=== PATIENT | female | born 1995 | race Caucasian/White ===

== ENCOUNTER 2021-01-04 11:14 | Inpatient (IN) | payer OTHER ==
[~2021-01-04] VITALS: Ht 165.1 cm; Wt 67.9 kg
[2021-01-04 12:27] LABS: HEMATOCRIT 40.9 % (36.0-47.0); HEMOGLOBIN 13.6 g/dl (12.0-15.5); MEAN CORPUSCULAR HGB CONC 33.3 g/dl (32.0-36.5); MEAN CORPUSCULAR VOLUME 90.3 fl (80.0-96.0); PLATELET COUNT, AUTOMATED 187 10^3/uL (150-450); RED BLOOD COUNT 4.53 10^6/uL (4.00-5.40); WHITE BLOOD COUNT 6.8 10^3/uL (4.0-10.0)
[2021-01-04 13:10] LABS: ACETAMINOPHEN LEVEL < 2.0 UG/ML (10.0-30.0); ALBUMIN 3.9 GM/DL (3.2-5.2); ALT/SGPT 29 U/L (12-78); BILIRUBIN,DIRECT < 0.1 MG/DL (0.0-0.2); BILIRUBIN,TOTAL 0.2 MG/DL (0.2-1.0); BLOOD UREA NITROGEN 11 MG/DL (7-18); CALCIUM LEVEL 9.2 MG/DL (8.5-10.1); CARBON DIOXIDE LEVEL 28 MEQ/L (21-32); CHLORIDE LEVEL 109 MEQ/L (98-107); CREATININE FOR GFR 0.78 MG/DL (0.55-1.30); ETHYL ALCOHOL (ETHANOL) < 0.003 % (0.000-0.010); GLOMERULAR FILTRATION RATE > 60.0 (>60); GLUCOSE, FASTING 98 MG/DL (70-100); POTASSIUM SERUM 4.4 MEQ/L (3.5-5.1); SALICYLATE LEVEL 4.5 MG/DL (5.0-30.0); SODIUM LEVEL 140 MEQ/L (136-145)
[2021-01-04 13:13] LABS: HCG, SERUM QUALITATIVE NEGATIVE (NEGATIVE)
[2021-01-04 13:57] LABS: AMPHETAMINES LEVEL URINE NEGATIVE (NEGATIVE); BARBITURATES URINE NEGATIVE (NEGATIVE); BENZODIAZEPINES URINE NEGATIVE (NEGATIVE); CANNABINOIDS URINE POSITIVE (NEGATIVE); COCAINE METABOLITE URINE NEGATIVE (NEGATIVE); METHADONE URINE NEGATIVE (NEGATIVE); OPIATES URINE NEGATIVE (NEGATIVE); PHENCYCLIDINE URINE NEGATIVE (NEGATIVE)
[2021-01-04] MEDS ORDERED: NICOTINE 14 MG/24 HR TRANSDERMAL TD ONE (16:00)
[2021-01-04] MEDS ORDERED: [UNRECOGNIZED DRUG - CODE] TOP (19:22)
[2021-01-04] MEDS ORDERED: HOME MED LIST COMPLETE! XX SCH (19:25)
--- NOTE | 2021-01-04 22:14 | ECGEPIP ---
[facility] - ED Test Date: 2021-01-04 Pat Name: ROXI LAGUNA Department: Room: - Gender: Female Secondary Art Teacher: ARELIS : 1995 Requested By: ALEXANDRE Rowan Order Number: [id number] Reading MD: Alexandre Tao Measurements Intervals [place] Rate: 51 P: 46 GA: 128 QRS: 37 QRSD: 86 T: 33 QT: 418 QTc: 385 Interpretive Statements Sinus bradycardia with premature atrial complexes Comparison tracing not on file Electronically Signed on 01-04-2021 22:14:34 EDT by Alexandre Tao
[2021-01-05] MEDS ORDERED: diphenhydrAMINE 50MG CAP PO ONE (00:15)
[2021-01-05 09:49] LABS: RSV AMPLIFICATION NEGATIVE (NEGATIVE)
[2021-01-05] MEDS ORDERED: MOM 30ML SUSPENSION UDC PO PRN (13:00)
[2021-01-05] MEDS ORDERED: NICOTINE 14 MG/24 HR TRANSDERMAL TD ONE (13:00)
[2021-01-05] MEDS ORDERED: ACETAMINOPHEN TAB 650MG DOSE (2X325MG) PO PRN (13:00)
[2021-01-05] MEDS ORDERED: traZODone 50 MG TAB PO PRN (13:00)
[2021-01-05] MEDS ORDERED: MAALOX 30 ML SUSP *UDC PO PRN (13:00)
[2021-01-05 15:40] VITALS: BP 126/78
[2021-01-06 07:38] VITALS: BP 124/54
[2021-01-06] MEDS ORDERED: INFLUENZA QUADRIVALENT PF VACCINE 0.5ML SYRINGE IM ONE (09:00)
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
[2021-01-06 11:00] VITALS: BP 152/88
[2021-01-06 13:25] LABS: GC DNA AMPLIFICATION POSITIVE (NEGATIVE)
[2021-01-06 16:36] LABS: HIV 1&2 SCREEN CENTAUR NEGATIVE (NEGATIVE)
[2021-01-06] MEDS ORDERED: LIDOCAINE 1% SDV 5ML VIAL DILUENT ONE (17:00)
[2021-01-06] MEDS ORDERED: cefTRIAXone 500MG VIAL (J0696 PER 250MG) IM ONE (17:00)
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
[2021-01-06] MEDS ORDERED: BICILLIN L-A 2,400,000 UNIT/4 ML SYRINGE (PENICILLIN G BENZATINE) IM ONE (20:00)
[2021-01-06] MEDS ORDERED: DOXYCYCLINE HYCLATE 100MG TABLET PO SCH (21:00)
[2021-01-06] MEDS: ARIPiprazole 10 MG TAB PO SCH (21:19)
[2021-01-07 10:41] LABS: CHOLESTEROL RISK RATIO 3.171 (<5)
[2021-01-07 16:45] VITALS: BP 126/72
[2021-01-07] MEDS: ARIPiprazole 10 MG TAB PO SCH (21:21)
[2021-01-08 06:28] VITALS: BP 121/78
--- NOTE | 2021-01-08 14:36 | MHIPN ---
[facility] PROGRESS NOTE DATE: 01/08/2021 VITAL SIGNS: Blood pressure 121/78, pulse 103, temperature 96.8. This is a video assessment. She is in the inpatient unit, accompanied by staff. I am at home. CHIEF COMPLAINT: Says feels okay. SUBJECTIVE: Seen for followup. Indicates feels okay and that she does not feel much different from when she came in. On further inquiry, says has been feeling good and has been energetic. Sleep is okay. Suggests has not needed much sleep. MENTAL STATUS EXAMINATION: Neat, cooperative. No agitation. No psychomotor retardation. She is coherent. Speech is normal in amount and rate. Affect somewhat expansive and tends to laugh not in context with what is being discussed. Denies any suicidal thoughts or intents. I could not detect any delusions at this point. Cognition is grossly intact. Judgment is poor. Insight fair at best. ASSESSMENT: 1. Bipolar disorder, consider type 1 with possible mixed features. 2. Cannabis use disorder. 3. Tobacco use disorder. Moods remain elevated to some extent, and this clouds her judgment. PLAN: Continue current care, including the Abilify 10 mg at night. We will continue current observations as well. Encourage participate in activities in the unit. Further recommendations will be made depending on the clinical picture.
[2021-01-08 16:13] VITALS: BP 118/76
[2021-01-08] MEDS: ARIPiprazole 10 MG TAB PO SCH (21:38)
[2021-01-09 06:23] VITALS: BP 138/69
[2021-01-09 16:22] VITALS: BP 130/75
[2021-01-09] MEDS: ARIPiprazole 10 MG TAB PO SCH (21:08)
[2021-01-10 06:25] VITALS: BP 137/96
[2021-01-10] MEDS ORDERED: ABIL10TA9 PO (10:24)
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
--- NOTE | 2021-01-10 17:00 | MHIPN ---
[facility] PROGRESS NOTE DATE: 01/09/2021 VITAL SIGNS: Blood pressure 130/75, pulse 83, temperature 97.9. This is a video assessment. She is seen in the presence of staff. She is in the inpatient psychiatry unit. I am at home. CHIEF COMPLAINT: Says feels okay. SUBJECTIVE: Seen for followup. Indicates has been feeling okay and that she feels her mood is a bit more settled. Says had a good night. Denies an elated mood at present. Also suggests is not craving cannabis. MENTAL STATUS EXAMINATION: Neat, cooperative. No agitation. No psychomotor retardation. Coherent. Affect reactive, not as expansive as yesterday. Denies any suicidal thoughts or intents. No overt delusions. Cognition grossly intact. Judgment remains compromised, as insight. ASSESSMENT: 1. Bipolar disorder, type 1, possibly mixed features. 2. Cannabis use disorder. PLAN: Continue current care, including the Abilify, and observation. Encourage participation in activities in the unit. She will be seen by the assigned clinician tomorrow.
== END 2021-01-10 14:29 | disposition home or self-care (01) | DRG 883 ==
LOC: M ED 11:14 → M ED INP 01-05 13:00 → M PSY 01-05 16:14
PROVIDERS: ADMIT Student in an Organized Health Care Education/Training Program; ATTEND Student in an Organized Health Care Education/Training Program
DX: F60.3 Borderline personality disorder (principal); A54.9 Gonococcal infection, unspecified; F17.200 Nicotine dependence, unspecified, uncomplicated; F12.90 Cannabis use, unspecified, uncomplicated; A53.9 Syphilis, unspecified; E66.01 Morbid (severe) obesity due to excess calories

== ENCOUNTER 2021-01-28 11:24 | Inpatient (IN) | payer OTHER ==
[~2021-01-28] VITALS: Ht 167.6 cm; Wt 70.1 kg
[~2021-01-28 11:24] MED LIST: ABIL10TA9 PO; [UNRECOGNIZED DRUG - CODE] TOP
[2021-01-28] MEDS ORDERED: MELA10CA6 PO (11:35)
[2021-01-28 12:05] LABS: HEMATOCRIT 41.3 % (36.0-47.0); HEMOGLOBIN 13.7 g/dl (12.0-15.5); MEAN CORPUSCULAR HEMOGLOBIN 29.9 pg (27.0-33.0); MEAN CORPUSCULAR HGB CONC 33.2 g/dl (32.0-36.5); MEAN CORPUSCULAR VOLUME 90.2 fl (80.0-96.0); PLATELET COUNT, AUTOMATED 215 10^3/uL (150-450); RED BLOOD COUNT 4.58 10^6/uL (4.00-5.40); WHITE BLOOD COUNT 5.7 10^3/uL (4.0-10.0)
[2021-01-28 12:44] LABS: AMPHETAMINES LEVEL URINE NEGATIVE (NEGATIVE); BARBITURATES URINE NEGATIVE (NEGATIVE); BENZODIAZEPINES URINE NEGATIVE (NEGATIVE); CANNABINOIDS URINE POSITIVE (NEGATIVE); COCAINE METABOLITE URINE NEGATIVE (NEGATIVE); METHADONE URINE NEGATIVE (NEGATIVE); OPIATES URINE NEGATIVE (NEGATIVE); PHENCYCLIDINE URINE NEGATIVE (NEGATIVE)
[2021-01-28 12:46] LABS: ACETAMINOPHEN LEVEL < 2.0 UG/ML (10.0-30.0); ALBUMIN 4.2 GM/DL (3.2-5.2); ALT/SGPT 32 U/L (12-78); BILIRUBIN,DIRECT 0.1 MG/DL (0.0-0.2); BILIRUBIN,TOTAL 0.3 MG/DL (0.2-1.0); BLOOD UREA NITROGEN 14 MG/DL (7-18); CALCIUM LEVEL 9.8 MG/DL (8.5-10.1); CARBON DIOXIDE LEVEL 29 MEQ/L (21-32); CHLORIDE LEVEL 110 MEQ/L (98-107); ETHYL ALCOHOL (ETHANOL) < 0.003 % (0.000-0.010); GLOMERULAR FILTRATION RATE > 60.0 (>60); GLUCOSE, FASTING 113 MG/DL (70-100); POTASSIUM SERUM 3.9 MEQ/L (3.5-5.1); SALICYLATE LEVEL 3.8 MG/DL (5.0-30.0); SODIUM LEVEL 143 MEQ/L (136-145); TOTAL PROTEIN 7.6 GM/DL (6.4-8.2)
[2021-01-28 14:01] LABS: HCG, SERUM QUALITATIVE NEGATIVE (NEGATIVE)
[2021-01-28 17:46] LABS: RSV AMPLIFICATION POSITIVE (NEGATIVE)
[2021-01-28] MEDS ORDERED: MOM 30ML SUSPENSION UDC PO PRN (18:40)
[2021-01-28] MEDS ORDERED: MAALOX 30 ML SUSP *UDC PO PRN (18:40)
[2021-01-28] MEDS ORDERED: ACETAMINOPHEN TAB 650MG DOSE (2X325MG) PO PRN (18:40)
[2021-01-28] MEDS ORDERED: ABIL10TA9 PO (18:44)
[2021-01-28] MEDS ORDERED: HOME MED LIST COMPLETE! XX SCH (18:45)
--- OUTSIDE RECORDS SUMMARY | 2021-01-28 18:54 | CCD ---
Author Author [facility] Organization [facility] Address Unknown Phone Unavailable Care Team Providers Care Autism Teacher Name Role Phone Feola, T Kailey PA Unavailable Unavailable Feola, T Kailey PA Unavailable Unavailable Feola, T Kailey PA Unavailable Unavailable Feola, T Kailey PA Unavailable Unavailable Feola, T Kailey PA Unavailable Unavailable Feola, T Kailey PA Unavailable Unavailable Feola, T Kailey PA Unavailable Unavailable Feola, T Kailey PA Unavailable Unavailable Feola, T Kailey PA Unavailable Unavailable Feola, T Kailey PA Unavailable Unavailable Feola, T Kailey PA Unavailable Unavailable Feola, T Kailey PA Unavailable Unavailable Feola, T Kailey PA Unavailable Unavailable Feola, T Kailey PA Unavailable Unavailable Feola, T Kailey PA Unavailable Unavailable Feola, T Kailey PA Unavailable Unavailable Feola, T Kailey PA Unavailable Unavailable Feola, T Kailey PA Unavailable Unavailable Feola, T Kailey PA Unavailable Unavailable Feola, T Kailey PA Unavailable Unavailable Feola, T Kailey PA Unavailable Unavailable Feola, T Kailey PA Unavailable Unavailable Feola, T Kailey PA Unavailable Unavailable Feola, T Kailey PA Unavailable Unavailable Feola, T Kailey PA Unavailable Unavailable Feola, T Kailey PA Unavailable Unavailable Feola, T Kailey PA Unavailable Unavailable Feola, T Kailey PA Unavailable Unavailable Feola, T Kailey PA Unavailable Unavailable Feola, T Kailey PA Unavailable Unavailable Feola, T Kailey PA Unavailable Unavailable Feola, T Kailey PA Unavailable Unavailable Feola, T Kailey PA Unavailable Unavailable Feola, T Kailey PA Unavailable Unavailable Feola, T Kailey PA Unavailable Unavailable Feola, T Kailey PA Unavailable Unavailable Feola, T Kailey PA Unavailable Unavailable Feola, T Kailey PA Unavailable Unavailable Feola, T Kailey PA Unavailable Unavailable Feola T Kailey MEJÍA Unavailable Unavailable FeJacqueline vega Kailey MEJÍA Unavailable Unavailable Re-disclosure Warning The records that you are about to access may contain information from federally-assisted alcohol or drug abuse programs. If such information is present, then the following federally mandated warning applies: This information has been disclosed to you from records protected by federal confidentiality rules (42 CFR part 2). The federal rules prohibit you from making any further disclosure of this information unless further disclosure is expressly permitted by the written consent of the person to whom it pertains or as otherwise permitted by 42 CFR part 2. A general authorization for the release of medical or other information is NOT sufficient for this purpose. The Federal rules restrict any use of the information to criminally investigate or prosecute any alcohol or drug abuse patient.The records that you are about to access may contain highly sensitive health information, the redisclosure of which is protected by Article 27-F of the [facility] Public Health law. If you continue you may have access to information: Regarding HIV / AIDS; Provided by facilities licensed or operated by the [facility] Office of Mental Health; or Provided by the [facility] Office for People With Developmental Disabilities. If such information is present, then the following [facility] mandated warning applies: This information has been disclosed to you from confidential records which are protected by state law. State law prohibits you from making any further disclosure of this information without the specific written consent of the person to whom it pertains, or as otherwise permitted by law. Any unauthorized further disclosure in violation of state law may result in a fine or fdc sentence or both. A general authorization for the release of medical or other information is NOT sufficient authorization for further disc losure. Encounters Encounter Providers Location Date Indications Data Source(s ) Outpatient Attender: Kailey MEJÍA 021 03:36:27 PM EDT - 10/03/2020 04:02:14 PM EDT [facility] ([facility] ) Medications No Information Insurance Providers Payer name Policy type / Coverage type Policy ID Covered green party ID Covered green party's relationship to lópez Policy López Plan Information NATHANIEL MANLEY/NATHANIEL [id number] Spouse 01 [id number] [facility] [id number] [facility] [id number] Problems, Conditions, and Diagnoses No Information Surgeries/Procedures No Information Results ID Date Data Source [id number] 01/05/2021 08:49:00 AM EDT [facility] Name Value Range Interpretation Code Description Data Isabel rce(s) Supporting Document(s) SARS coronavirus 2 RNA [Presence] in Res piratory specimen by KAITLYNN with probe detection NEGATIVE [facility] This lab was ordered by [facility] a nd reported by [facility]. Procedure Social History No Information
[2021-01-28 22:30] VITALS: BP 147/82
[2021-01-29 06:29] VITALS: BP 121/74
[2021-01-29] MEDS: NICOTINE 21MG/24HR 1 EA TRANSDERMAL TD PRN (08:13)
[2021-01-29] MEDS: ONDANSETRON 4 MG ORAL DISINTEGRATING TAB PO PRN (17:22)
--- NOTE | 2021-01-29 17:42 | HPEPDOC ---
[facility] Medical History & Physical Date of Admission Jan 28, 2021 Date of Service: Jan 29, 2021 History and Physical CHIEF COMPLAINT: Medical health screening HISTORY OF PRESENT ILLNESS: Mrs. Wayne is a 25 year old female who was seen in the inpatient mental health unit. Please seen mental health history and physical for more information about patient's psychiatric hospitalization. Hospitalist was consulted for medical health screening. Patient reports 2 weeks of coughing and diarrhea. Her family is sick with RSV, and she tested positive for RSV. Otherwise, she tells me that it is difficult for her to eat. She is a heavy marijuana consumer, so food is not as appetizing as it once was and sometimes it makes her nauseous. I have added on Zofran for nausea and famotidine for GERD like symptoms. Otherwise, she denies any fever, changes in vision, sore throat, dyspnea, chest pain, abdominal pain, or dysuria. PAST MEDICAL HISTORY: 1. Sebaceous cysts. 2. Gestational diabetes in . 3. History of severe mood lability. PAST SURGICAL HISTORY: 1. Cyst removal from leg and abdominal wall. SOCIAL HISTORY: Tobacco use: Former smoker. Tells me she quit about 2 to 3 weeks ago ETOH: Denies Illicit drug use: Marijuana FAMILY HISTORY: Biologic Father: Alcoholic, schizophrenia, overdose on crack cocaine Mother: Heart disease and mental health issues ALLERGIES: Please see below. REVIEW OF SYSTEMS: CONSTITUTIONAL: Denies any fever or chills. ENT: Denies sore throat. RESPIRATORY: Denies shortness of breath. Reports cough. CARDIOVASCULAR: Denies chest pain. GASTROINTESTINAL: Denies abdominal pain. Reports diarrhea. Denies constipation GENITOURINARY: Denies dysuria. CUTANEOUS: Denies rashes. MUSCULOSKELETAL: Denies muscle weakness. NEUROLOGICAL: Denies paresthesias. PSYCHOLOGICAL: Denies anxiety. Denies depression. HOME MEDICATIONS: Please see below. PHYSICAL EXAMINATION: VITAL SIGNS: Temperature 97.9, pulse 70, respiratory rate 16, blood pressure 121/74, pulse oximetry 98% on room air. GENERAL: Comfortable, in no apparent distress. HEENT: Head normocephalic/atraumatic, EOMI, sclera clear. NECK: Supple, no JVD. RESPIRATORY: Lungs clear to auscultation bilaterally, no rales, wheeze or rhonc hi. CARDIOVASCULAR: Regular rate and rhythm. ABDOMEN: Soft, nontender, no guarding or rebound tenderness. Normal bowel sounds. MUSCLE SKELETAL: Muscle strength 5/5 in all extremities. NEUROLOGICAL: CN 312 grossly intact, no focal deficits noted. PSYCHOLOGICAL: Normal mood and affect LABORATORY DATA: See below. MICROBIOLOGY: Please see below. ASSESSMENT and PLAN: 1. Bipolar disorder Being managed in the inpatient mental health unit 2. Poor appetite Possibly secondary to stopping cannabis Added on famotidine ODT Zofran as needed Thank you for consulting us. We will sign off at this time. If there is any further questions or concerns, please do not hesitate to reconsult us. Vital Signs Vital Signs Date Time Temp Pulse Resp B/P (MAP) Pulse Ox O2 Delivery O2 Flow Rate FiO2 01/29/21 09:05 Room Air 01/29/21 06:29 97.9 70 16 121/74 (90) 98 Home Medications Scheduled Aripiprazole (Abilify) 10 Mg Tablet, 10 MG PO QHS Melatonin (Melatonin) 10 Mg Capsule, 10 MG PO QHS Scheduled PRN Benzoyl Peroxide (Acne Medication) 10% Lotion, 1 APPLIC TOP DAILY PRN for ACNE BREAKOUT APPLIES TO FACE Allergies Coded Allergies: No Known Allergies (Unverified , 01/04/21) A-FIB/CHADSVASC A-FIB History Current/History of A-Fib/PAF?: No ANTHONY YANCEY DO Jan 29, 2021 17:41
[2021-01-29 18:32] VITALS: BP 138/88
[2021-01-29] MEDS: FAMOTIDINE 20 MG TAB PO SCH (20:56)
[2021-01-29] MEDS: traZODone 50 MG TAB PO PRN (20:56)
[2021-01-30 06:44] VITALS: BP 113/73
[2021-01-30] MEDS: FAMOTIDINE 20 MG TAB PO SCH ×2 (08:49→21:01)
[2021-01-30] MEDS: NICOTINE 21MG/24HR 1 EA TRANSDERMAL TD PRN (16:42)
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
[2021-01-30 18:13] VITALS: BP 139/82
[2021-01-30] MEDS: traZODone 50 MG TAB PO PRN ×2 (21:01→21:42)
[2021-01-31 06:21] VITALS: BP 137/80
[2021-01-31] MEDS: FAMOTIDINE 20 MG TAB PO SCH ×2 (09:17→21:17)
--- NOTE | 2021-01-31 10:46 | MHIPN ---
[facility] PROGRESS NOTE DATE: 01/30/2021 HISTORY OF PRESENT ILLNESS: The patient today states "I'm doing well." She said she slept better and she said she is not depressed. She is denying suicidal thoughts today, but she did have fleeting suicidal thoughts yesterday when she said that she thought that maybe she could start collecting her medications and overdose at some point, but she says today she is not feeling like that. MENTAL STATUS EXAM: She is alert and oriented times 3. She is pleasant, cooperative, verbally spontaneous. Eye contact is good. There is no formal thought disorder noted. Mood is "well today." Affect is restricted, but appropriate to mood. She is not psychotic, suicidal or homicidal. Concentration and memory is good. Insight and judgment is fair. DIAGNOSES: 1. Bipolar disorder. 2. Cluster B traits 3. Rule out borderline personality disorder. 4. Cannabis use disorder. TREATMENT PLAN: At this point the patient states that she is doing better although she is still having some fleeting suicidal thoughts. She did say the increase in the trazodone to 100 mg has helped her sleep better and she says that decreasing the Abilify to 5 mg has dissolved the restlessness that she had been experiencing. We will continue to monitor her for continued elevation and stabilization of her mood and continued resolution of her suicidal ideation. SHARRI
--- NOTE | 2021-01-31 13:38 | MHIPNPDOC ---
[facility] Progress Note Progress Note DATE OF SERVICE: 01/31/21 HISTORY: Patient has a history of bipolar disorder, self-presents with suicidal thoughts and akathisia, states that she has been doing better since decreasing her dose of Abilify from 10 to 5 mg nightly and taking trazodone. Denies acute physical complaints, was seen in group, is on contact precautions. VITAL SIGNS: See below. NEW TEST RESULTS: See below CURRENT MEDICATIONS: See below. MENTAL STATUS EXAMINATION: Patient is a 25-year old female, who is in no acute physical distress, average build, appears stated age, good eye contact Speech: Is normal rate rhythm and volume,. Language skills are good. Thought processes including: Linear and logical. Thought content: Denies suicidal ideation, intent or plan. Denies homicidal ideation, intent or plan abstract reasoning, and computation: Good description of associations: Good Description of abnormal or psychotic thoughts: Denies Judgment: Fair Insight: Fair Orientation: X4 Recent and remote memory: Intact Attention span and concentration: Normal Language: Salvadorean Fund of knowledge: Average. Mood: " I am okay, doing better since the change". Affect: Euthymic, mildly constricted, appropriate DIAGNOSES: Bipolar disorder per history Rule out borderline personality disorder ASSESSMENT: Patient reports improvements in mood since increasing trazodone, decreasing dose of Abilify, reports akathisia has subsided, denies any acute physical complaints, reports tolerating medication without side effects, has been attending groups, denies any suicidal homicidal thoughts, possible discharge tomorrow. MANAGEMENT PLAN: Continue medications, no changes TIME SPENT: 15 minutes. Vital Signs Vital Signs Date Time Temp Pulse Resp B/P (MAP) Pulse Ox O2 Delivery O2 Flow Rate FiO2 01/31/21 06:21 97.9 72 18 137/80 (99) 98 Room Air Current Medications Current Medications Medications (Trade) Dose Ordered Sig/Jenny Route PRN Reason Start Time Stop Time Status Last Admin Dose Admin Acetaminophen (Tylenol Tab) 650 mg Q6HP PRN PO HEADACHE or MILD DISCOMFORT 01/28/21 18:40 Al Hydrox/Mg Hydrox/Simethicone (Mylanta) 30 ml Q4HP PRN PO HEARTBURN/INDIGESTION 01/28/21 18:40 Aripiprazole (AbiLIFY) 5 mg QHS PO 01/28/21 21:00 01/30/21 21:01 Famotidine (Pepcid) 20 mg BID PO 01/29/21 21:00 01/31/21 09:17 Home Med (Home Med List Complete!) ASDIRECTED XX 01/28/21 18:45 01/28/21 18:56 DC Magnesium Hydroxide (Milk Of Magnesia) 30 ml DAILYPRN PRN PO CONSTIPATION 01/28/21 18:40 Nicotine (Nicoderm Cq 21mg) 1 patch DAILY PRN TD NICOTINE WITHDRAWAL 01/28/21 18:40 01/30/21 16:42 Ondansetron HCl (Zofran Odt) 4 mg Q6HP PRN PO NAUSEA OR VOMITING 01/29/21 16:15 01/29/21 17:22 Trazodone HCl (Desyrel) 100 mg QHSP PRN PO INSOMNIA 01/28/21 18:40 01/30/21 21:42 Allergies Coded Allergies: No Known Allergies (Unverified , 01/04/21) CECE JOHNSON MD Jan 31, 2021 13:38
[2021-01-31 16:45] VITALS: BP 138/65
[2021-01-31] MEDS: traZODone 50 MG TAB PO PRN (21:17)
[2021-02-01 06:19] VITALS: BP 131/67
[2021-02-01] MEDS: FAMOTIDINE 20 MG TAB PO SCH (08:18)
[2021-02-01] MEDS: ONDANSETRON 4 MG ORAL DISINTEGRATING TAB PO PRN (08:18)
--- NOTE | 2021-02-01 09:53 | MHDSPDOC ---
[facility] Discharge Summary Discharge Summary DATE OF ADMISSION: Jan 28, 2021 at 18:38 DATE OF DISCHARGE: February 01, 2021 Discharge diagnoses: Bipolar II disorder Cluster B traits Cannabis use disorder Reason for admission: Per Dr Lemons's H and P: This is the second psychiatric admission for this 25-year-old woman who came to the emergency room with complaint of having "really intrusive suicidal thoughts." She said they were frequently throughout the day for the last few days. She said that she really did not want to , and that is why she wanted to get help and be hospitalized. Said she would drive down the road an suddenly think "what if I just wreck my car into that tree." She also reported having bouts of anger that she said she has never had an issue with before. The patient was just hospitalized at [facility] on 01/06/2021 until 01/10/2021. She was discharged with a diagnosis of bipolar disorder, mixed episode, cluster B traits, rule out borderline personality disorder, cannabis use disorder, and she was discharged on Abilify 10 mg every night. She states that at first she thought that the medication was really helping to stabilize her moods, but then she said that she started to feel like she was very restless. She felt like she needed to continually needed to keep moving, and I think it is possibly due to some akathisia from the Abilify. The patient states that the suicidal thoughts are fleeting, that they are intrusive. She says she is feeling more depressed, experiencing anhedonia, at times hopeless and helpless, and she was having feelings of worthlessness, and so she was not sleeping good. She said the trazodone did help at 50 mg but not fully. According to admission note done by Dr. Johnson on 01/05/2021, the patient reports that she can have high episodes that can last up to 3-4 months in duration. She says that it is like she "watch myself on TV." She apparently during this time has difficulty with sleeping. 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 She stated that during that time she will do things, like have unprotected sex, increased goal-directed activity, and requires little sleep, although she has a lot of energy. Vital signs: See below Consultants involved: See medical H&P by hospitalist Treatment and progress on the unit: Patient was admitted to the [facility] on a 9.39 legal status and was afforded the following treatment modalities: 1. Individual therapy 2. Group therapy 3. Medication management 4. Milieu therapy 5. Safe environment Hospital course: Patient was admitted to the [facility] on a 9.39 legal status. Was medically cleared prior to coming up to the [facility]. Patient presented reporting akathisia and Abilify was decreased to 5 mg p.o. nightly, patient denied suicidal ideation since admission but states she wants her medications changed, reported good response to lowering the dose of Abilify no longer reporting akathisia, aims scoring 0 on interview. Patient educated on drug use including cannabis, risky behavior including unprotected sexual behavior. Patient found medications beneficial and tolerated them well. Denies mood anxiety and intrusive thoughts which improved with treatment. Patient attended groups daily during stay. Patient symptoms improved with treatment. On day of discharge lenin mathew denied depression, anxiety, insomnia, suicidal or homicidal ideations intent or plan, hallucinations, delusions. Patient was discharged home with follow-up. Patient felt safe for discharge. Was offered continued stay involuntary admission but refused. Discharge assessment: On today's interview patient is alert and oriented, dressed appropriately. Hygiene and grooming is well-kept. Smiles on approach and is pleasant and engaged on interview. Denies depression and anxiety. Denies suicidal homicidal ideation, intent or planning. Denies and is not observed with beverly or psychotic symptoms of delusions, hallucinations, bizarre thinking, obsessions, paranoia, ruminations, illogical thoughts, flight of ideas or having poor insight or judgment. Patient has normal mentation, declines further hospitalization of voluntary status and meets criteria for discharge today, patient encouraged to return the hospital if symptoms worsen or change and encouraged to call unit if they feel they need provider's questions to be answered or help with medications or care. Mental status: Patient is a 25-year old female, who is in no acute physical distress, average build, appears stated age, good eye contact Speech: Is normal rate rhythm and volume,. Language skills are good. Thought processes including: Linear and logical. Thought content: Denies suicidal ideation, intent or plan. Denies homicidal ideation, intent or plan abstract reasoning, and computation: Good description of associations: Good Description of abnormal or psychotic thoughts: Denies Judgment: Fair Insight: Good Orientation: X4 Recent and remote memory: Intact Attention span and concentration: Normal Language: Latvian Fund of knowledge: Average. Mood: "well". Affect: Euthymic, full, appropriate, smiles and laughs Medications on discharge: -see medication reconciliation: CSSRS on discharge: Wish to be : No nonspecific active suicidal thoughts: No lifetime attempts: 1x possible age 14, took trazodone, stated was not a suicide attempt interrupted attempts: 0 aborted attempts: 0 preparatory acts or behavior: None Taking into consideration safety state, safety plan, protective factor, status, modifiable, non-modifiable risk factors patient is at low risk on discharge for suicide according to [facility] suicide evaluation. PLAN/FOLLOWUP ARRANGEMENTS: Social work notes The amount of time spent in the coordination of care for this patient was approximately 25 minutes. ETOH/Disorder Med Rx ETOH/DRUG DISORDER RX: Offrd @ d/c & pt refused Vital Signs/I&Os Vital Signs Date Time Temp Pulse Resp B/P (MAP) Pulse Ox O2 Delivery O2 Flow Rate FiO2 02/01/21 06:19 97.9 83 18 131/67 (88) 98 Room Air Medications Scheduled Aripiprazole (Abilify) 10 Mg Tablet, 10 MG PO QHS, (Reported) Melatonin (Melatonin) 10 Mg Capsule, 10 MG PO QHS, (Reported) Scheduled PRN Benzoyl Peroxide (Acne Medication) 10% Lotion, 1 APPLIC TOP DAILY PRN for ACNE BREAKOUT, (Reported) APPLIES TO FACE Allergies Coded Allergies: No Known Allergies (Unverified , 01/04/21) CECE JOHNSON MD Feb 01, 2021 09:53
[2021-02-01] MEDS ORDERED: FAMO20TA PO (09:56)
[2021-02-01] MEDS ORDERED: ABIL1TAB11 PO (09:56)
[2021-02-01] MEDS ORDERED: TRAZ-252 PO (09:56)
[2021-02-01] MEDS ORDERED: NICO21PAT TD (09:56)
== END 2021-02-01 12:46 | disposition home or self-care (01) | DRG 885 ==
LOC: M ED 11:24 → EDBEDREQSVC 16:39 → M ED INP 18:38 → M PSY 21:00
PROVIDERS: ADMIT Student in an Organized Health Care Education/Training Program; ATTEND Student in an Organized Health Care Education/Training Program
DX: F31.81 Bipolar II disorder (principal); R45.851 Suicidal ideations; F12.90 Cannabis use, unspecified, uncomplicated; F60.89 Other specific personality disorders; Z79.899 Other long term (current) drug therapy

== ENCOUNTER → 2021-10-12 | Outpatient (CLI) | payer OTHER ==
[~2021-10-12] MED LIST changes: +ABIL1TAB11 PO; +FAMO20TA PO; +MELA10CA6 PO; +NICO21PAT TD; +TRAZ-252 PO
[2021-10-12 17:03] LABS: BASO % 0.5 % (0.0-1.0); EOS # 0.2 10^3/uL (0.0-0.5); EOS % 3.6 % (0.0-3.0); HEMATOCRIT 39.3 % (36.0-47.0); HEMOGLOBIN 13.3 g/dl (12.0-15.5); LYMPH # 2.1 10^3/uL (1.5-5.0); LYMPH % 34.5 % (24.0-44.0); MEAN CORPUSCULAR HEMOGLOBIN 30.1 pg (27.0-33.0); MEAN CORPUSCULAR HGB CONC 33.8 g/dl (32.0-36.5); MEAN CORPUSCULAR VOLUME 88.9 fl (80.0-96.0); MONO # 0.6 10^3/uL (0.0-0.8); MONO % 9.5 % (2.0-8.0); NEUTROPHILS # 3.2 10^3/uL (1.5-8.5); NEUTROPHILS % 51.7 % (36.0-66.0); PLATELET COUNT, AUTOMATED 192 10^3/uL (150-450); RED BLOOD COUNT 4.42 10^6/uL (4.00-5.40); WHITE BLOOD COUNT 6.1 10^3/uL (4.0-10.0)
[2021-10-12 18:07] LABS: ALBUMIN 4.3 GM/DL (3.2-5.2); ALT/SGPT 33 U/L (12-78); BILIRUBIN,DIRECT < 0.1 MG/DL (0.0-0.2); BILIRUBIN,TOTAL 0.2 MG/DL (0.2-1.0); BLOOD UREA NITROGEN 15 MG/DL (7-18); CALCIUM LEVEL 9.5 MG/DL (8.5-10.1); CARBAMAZEPINE (TEGRETOL) LEVEL 1.7 UG/ML (4.0-10.0); CARBON DIOXIDE LEVEL 26 MEQ/L (21-32); CHLORIDE LEVEL 109 MEQ/L (98-107); CHOLESTEROL LEVEL 220 MG/DL (<200); CHOLESTEROL RISK RATIO 3.606 (<5); GLOMERULAR FILTRATION RATE > 60.0 (>60); GLUCOSE, FASTING 87 MG/DL (70-100); HDL CHOLESTEROL 61 MG/DL (>40); LDL CHOLESTEROL 145 MG/DL (<100); NON-HDL-C 159 MG/DL; POTASSIUM SERUM 4.4 MEQ/L (3.5-5.1); SODIUM LEVEL 140 MEQ/L (136-145); TOTAL PROTEIN 7.1 GM/DL (6.4-8.2); TRIGLYCERIDES LEVEL 70 MG/DL (<150)
== END ==
LOC: M PLALAB 15:01
PROVIDERS: ATTEND Psychiatry & Neurology Psychiatry
DX: F31.9 Bipolar disorder, unspecified (principal); F60.3 Borderline personality disorder; F12.20 Cannabis dependence, uncomplicated; Z63.0 Problems in relationship with spouse or partner

== ENCOUNTER 2022-01-21 03:49 | Emergency (ER) | payer OTHER ==
[~2022-01-21 03:49] MED LIST changes: +ROZE8TAB16; +TEGR1TAB
[2022-01-21 04:38] LABS: HEMATOCRIT 36.1 % (36.0-47.0); HEMOGLOBIN 12.4 g/dl (12.0-15.5); MEAN CORPUSCULAR HEMOGLOBIN 29.8 pg (27.0-33.0); MEAN CORPUSCULAR HGB CONC 34.3 g/dl (32.0-36.5); MEAN CORPUSCULAR VOLUME 86.8 fl (80.0-96.0); PLATELET COUNT, AUTOMATED 212 10^3/uL (150-450); RED BLOOD COUNT 4.16 10^6/uL (4.00-5.40); WHITE BLOOD COUNT 7.9 10^3/uL (4.0-10.0)
[2022-01-21 05:15] LABS: RSV AMPLIFICATION NEGATIVE (NEGATIVE)
[2022-01-21 05:16] LABS: AMPHETAMINES LEVEL URINE NEGATIVE (NEGATIVE); BARBITURATES URINE NEGATIVE (NEGATIVE); BENZODIAZEPINES URINE NEGATIVE (NEGATIVE); CANNABINOIDS URINE POSITIVE (NEGATIVE); COCAINE METABOLITE URINE NEGATIVE (NEGATIVE); METHADONE URINE NEGATIVE (NEGATIVE); OPIATES URINE NEGATIVE (NEGATIVE); PHENCYCLIDINE URINE NEGATIVE (NEGATIVE)
[2022-01-21 05:28] LABS: ACETAMINOPHEN LEVEL < 2.0 UG/ML (10.0-30.0); ALBUMIN 4.1 GM/DL (3.2-5.2); ALT/SGPT 25 U/L (12-78); BILIRUBIN,DIRECT < 0.1 MG/DL (0.0-0.2); BILIRUBIN,TOTAL 0.3 MG/DL (0.2-1.0); BLOOD UREA NITROGEN 16 MG/DL (7-18); CALCIUM LEVEL 9.4 MG/DL (8.5-10.1); CARBON DIOXIDE LEVEL 25 MEQ/L (21-32); CHLORIDE LEVEL 109 MEQ/L (98-107); ETHYL ALCOHOL (ETHANOL) < 0.003 % (0.000-0.010); GLOMERULAR FILTRATION RATE > 60.0 (>60); GLUCOSE, FASTING 110 MG/DL (70-100); POTASSIUM SERUM 4.4 MEQ/L (3.5-5.1); SALICYLATE LEVEL 4.6 MG/DL (5.0-30.0); SODIUM LEVEL 138 MEQ/L (136-145); TOTAL PROTEIN 7.2 GM/DL (6.4-8.2)
[2022-01-21 05:29] LABS: HCG, SERUM QUALITATIVE NEGATIVE (NEGATIVE)
[2022-01-21 10:03] VITALS: BP 121/73
== END 2022-01-21 10:04 | disposition home or self-care (01) ==
LOC: M ED 03:49
DX: F60.3 Borderline personality disorder (principal); R00.1 Bradycardia, unspecified; F12.10 Cannabis abuse, uncomplicated; Z79.899 Other long term (current) drug therapy; F17.200 Nicotine dependence, unspecified, uncomplicated

== ENCOUNTER 2022-02-23 18:33 | Emergency (ER) | payer OTHER, SELFPAY ==
[~2022-02-23] VITALS: Ht 165.1 cm; Wt 73.0 kg
[2022-02-24 02:58] LABS: BASO % 0.5 % (0.0-1.0); EOS # 0.2 10^3/uL (0.0-0.5); EOS % 2.7 % (0.0-3.0); HEMATOCRIT 36.2 % (36.0-47.0); HEMOGLOBIN 12.1 g/dl (12.0-15.5); LYMPH # 1.7 10^3/uL (1.5-5.0); LYMPH % 28.1 % (24.0-44.0); MEAN CORPUSCULAR HGB CONC 33.4 g/dl (32.0-36.5); MEAN CORPUSCULAR VOLUME 86.8 fl (80.0-96.0); MONO # 0.5 10^3/uL (0.0-0.8); MONO % 8.6 % (2.0-8.0); NEUTROPHILS # 3.6 10^3/uL (1.5-8.5); NEUTROPHILS % 59.9 % (36.0-66.0); PLATELET COUNT, AUTOMATED 191 10^3/uL (150-450); RED BLOOD COUNT 4.17 10^6/uL (4.00-5.40)
[2022-02-24 03:38] LABS: BLOOD UREA NITROGEN 17 MG/DL (9-23); CARBON DIOXIDE LEVEL 26 MMOL/L (20-31); CHLORIDE LEVEL 106 MMOL/L (98-107); CPK CREATINE PHOSPHOKINASE 101 U/L (34-145); CREATININE FOR GFR 0.79 MG/DL (0.55-1.30); GLOMERULAR FILTRATION RATE > 60.0 (>60); GLUCOSE, FASTING 96 MG/DL (60-100); SODIUM LEVEL 140 MMOL/L (136-145)
[2022-02-24 03:45] VITALS: BP 97/54
== END 2022-02-24 04:03 | disposition home or self-care (01) ==
LOC: M ED 18:33
DX: T75.4XXA Electrocution, initial encounter (principal); F31.9 Bipolar disorder, unspecified; R00.1 Bradycardia, unspecified; Z79.899 Other long term (current) drug therapy

== ENCOUNTER 2023-03-15 17:10 | Emergency (ER) | payer MEDICAID, SELFPAY ==
[~2023-03-15] VITALS: Ht 165.1 cm; Wt 72.5 kg
[2023-03-15 18:03] LABS: BASO % 0.2 % (0.0-1.0); EOS # 0.1 10^3/uL (0.0-0.5); EOS % 1.1 % (0.0-3.0); HEMATOCRIT 38.7 % (36.0-47.0); HEMOGLOBIN 12.8 g/dl (12.0-15.5); LYMPH # 1.5 10^3/uL (1.5-5.0); MEAN CORPUSCULAR HEMOGLOBIN 29.2 pg (27.0-33.0); MEAN CORPUSCULAR HGB CONC 33.1 g/dl (32.0-36.5); MEAN CORPUSCULAR VOLUME 88.4 fl (80.0-96.0); MONO # 0.7 10^3/uL (0.0-0.8); MONO % 8.7 % (2.0-8.0); NEUTROPHILS # 5.8 10^3/uL (1.5-8.5); NEUTROPHILS % 71.8 % (36.0-66.0); PLATELET COUNT, AUTOMATED 199 10^3/uL (150-450); RED BLOOD COUNT 4.38 10^6/uL (4.00-5.40); WHITE BLOOD COUNT 8.1 10^3/uL (4.0-10.0)
[2023-03-15 18:18] LABS: BLOOD UREA NITROGEN 14 MG/DL (9-23); CALCIUM LEVEL 9.2 MG/DL (8.5-10.1); CARBON DIOXIDE LEVEL 28 MMOL/L (20-31); CHLORIDE LEVEL 106 MMOL/L (98-107); CREATININE FOR GFR 0.64 MG/DL (0.55-1.30); GLOMERULAR FILTRATION RATE > 60.0 (>60); GLUCOSE, FASTING 95 MG/DL (60-100); POTASSIUM SERUM 4.2 MMOL/L (3.5-5.1); SODIUM LEVEL 140 MMOL/L (136-145)
[2023-03-15] MEDS ORDERED: MULTTAB20 PO (18:27)
[2023-03-15 20:25] VITALS: BP 111/63; TEMP 99.3; O2SAT 100
== END 2023-03-15 20:27 | disposition home or self-care (01) ==
LOC: M ED 17:10
DX: O26.851 Spotting complicating pregnancy, first trimester (principal); F60.3 Borderline personality disorder; F31.9 Bipolar disorder, unspecified; F12.10 Cannabis abuse, uncomplicated; F17.200 Nicotine dependence, unspecified, uncomplicated; Z3A.01 Less than 8 weeks gestation of pregnancy; Z79.810 Long term (current) use of selective estrogen receptor modulators (SERMs)

== ENCOUNTER → 2023-04-30 | Outpatient (CLI) | payer MEDICAID, OTHER ==
[~2023-04-30] MED LIST changes: +MULTTAB20 PO
[2023-04-30 13:35] LABS: HEMATOCRIT 33.4 % (36.0-47.0); HEMOGLOBIN 11.2 g/dl (12.0-15.5); MEAN CORPUSCULAR HEMOGLOBIN 29.8 pg (27.0-33.0); MEAN CORPUSCULAR HGB CONC 33.5 g/dl (32.0-36.5); MEAN CORPUSCULAR VOLUME 88.8 fl (80.0-96.0); PLATELET COUNT, AUTOMATED 184 10^3/uL (150-450); RED BLOOD COUNT 3.76 10^6/uL (4.00-5.40)
[2023-04-30 14:31] LABS: HIV 1&2 SCREEN NEGATIVE (NEGATIVE)
[2023-04-30 14:39] LABS: HEPATITIS C VIRUS ABY INDEX 0.02 INDEX (<0.8)
[2023-04-30 15:12] LABS: CHLAMYDIA DNA AMPLIFICATION NEGATIVE (NEGATIVE); GC DNA AMPLIFICATION NEGATIVE (NEGATIVE)
== END ==
LOC: M PLALAB 11:20
PROVIDERS: ATTEND Specialist
DX: Z34.81 Encounter for supervision of other normal pregnancy, first trimester (principal)

== ENCOUNTER 2023-08-05 23:20 | Outpatient (CLI) | payer OTHER ==
[~2023-08-05] VITALS: Ht 165.1 cm; Wt 76.5 kg
[2023-08-05 23:40] VITALS: BP 120/68
== END 2023-08-06 01:56 | disposition home or self-care (01) ==
LOC: M LDO 23:20
PROVIDERS: ATTEND Obstetrics & Gynecology
DX: O26.892 Other specified pregnancy related conditions, second trimester (principal); R25.2 Cramp and spasm; R10.2 Pelvic and perineal pain; Z3A.26 26 weeks gestation of pregnancy; Z87.59 Personal history of other complications of pregnancy, childbirth and the puerperium
CPT/HCPCS: 59025; G0463

== ENCOUNTER → 2023-08-29 | Outpatient (CLI) | payer OTHER | LOC: M RAD 16:28 | PROVIDERS: ATTEND Obstetrics & Gynecology | DX: Z33.1 Pregnant state, incidental (principal) ==

== ENCOUNTER 2023-10-02 14:34 | Outpatient (CLI) | payer OTHER ==
[~2023-10-02] VITALS: Ht 165.1 cm; Wt 84.6 kg
[2023-10-02] MEDS ORDERED: TUMS750C5 PO (14:48)
[2023-10-02] MEDS ORDERED: BENA25CA4 PO (14:48)
[2023-10-02] MEDS ORDERED: ACET-907 PO (14:48)
[2023-10-02] MEDS ORDERED: HOME MED LIST COMPLETE! XX SCH (14:50)
[2023-10-02 14:55] VITALS: BP 125/68
[2023-10-02 15:25] VITALS: BP 119/55
== END 2023-10-02 15:15 | disposition home or self-care (01) ==
LOC: M LDO 14:34
PROVIDERS: ATTEND Obstetrics & Gynecology
DX: O36.8130 Decreased fetal movements, third trimester, not applicable or unspecified (principal); O26.23 Pregnancy care for patient with recurrent pregnancy loss, third trimester; Z3A.34 34 weeks gestation of pregnancy
CPT/HCPCS: 59025; G0463

== ENCOUNTER → 2023-10-10 | Outpatient (CLI) | payer OTHER ==
[~2023-10-10] MED LIST changes: +ACET-907 PO; +BENA25CA4 PO; +TUMS750C5 PO
[2023-10-10 13:54] LABS: GLUCOSE CHALLENGE TEST 1 HOUR 136 MG/DL (LESS THAN 140)
[2023-10-10 13:58] LABS: HEMATOCRIT 29.2 % (36.0-47.0); HEMOGLOBIN 9.4 g/dl (12.0-15.5); MEAN CORPUSCULAR HEMOGLOBIN 27.7 pg (27.0-33.0); MEAN CORPUSCULAR HGB CONC 32.2 g/dl (32.0-36.5); MEAN CORPUSCULAR VOLUME 86.1 fl (80.0-96.0); PLATELET COUNT, AUTOMATED 163 10^3/uL (150-450); RED BLOOD COUNT 3.39 10^6/uL (4.00-5.40)
[2023-10-10 17:14] LABS: GC DNA AMPLIFICATION NEGATIVE (NEGATIVE)
[2023-10-16 20:22] LABS: RPR Non-Reactive (Non-Reactive); T PALLIDUM ANTIBODIES Positive (Negative); T PALLIDUM ANTIBODY,EIA Reactive (Nonreactive)
== END ==
LOC: M PLALAB 09:59
PROVIDERS: ATTEND Advanced Practice Midwife
DX: O09.293 Supervision of pregnancy with other poor reproductive or obstetric history, third trimester (principal); Z3A.00 Weeks of gestation of pregnancy not specified

== ENCOUNTER 2023-11-09 10:09 | Inpatient (IN) | payer OTHER ==
[2023-11-09] VITALS (29 sets, daily range): BP systolic 104–142; BP diastolic 51–85; O2SAT 98
[~2023-11-09] VITALS: Ht 165.1 cm; Wt 88.4 kg
[2023-11-09] MEDS ORDERED: REGL10TA6 PO (10:26)
[2023-11-09] MEDS ORDERED: HOME MED LIST COMPLETE! XX SCH (10:30)
[2023-11-09] MEDS ORDERED: OXYTOCIN DRIP 30 UNITS in IV 1 EA IV PRN (12:05)
[2023-11-09] MEDS ORDERED: LIDOCAINE 1% MDV 20ML VIAL INFIL PRN (12:05)
[2023-11-09] MEDS: LACTATED RINGER'S 1000 ML IV STA (12:32)
[2023-11-09 12:41] LABS: HEMATOCRIT 29.7 % (36.0-47.0); HEMOGLOBIN 9.7 g/dl (12.0-15.5); MEAN CORPUSCULAR HEMOGLOBIN 26.4 pg (27.0-33.0); MEAN CORPUSCULAR HGB CONC 32.7 g/dl (32.0-36.5); MEAN CORPUSCULAR VOLUME 80.7 fl (80.0-96.0); PLATELET COUNT, AUTOMATED 173 10^3/uL (150-450); RED BLOOD COUNT 3.68 10^6/uL (4.00-5.40); WHITE BLOOD COUNT 8.1 10^3/uL (4.0-10.0)
[2023-11-09] MEDS ORDERED: FENTANYL 2MCG/ML ROPIVACAINE 0.2% IN 0.9% NACL 100ML IVBAG As Ordered ONE (12:57)
[2023-11-09] MEDS ORDERED: ONDANSETRON 4MG 2ML VIAL IV PRN (13:00)
[2023-11-09] MEDS ORDERED: diphenhydrAMINE 50MG/ML VIAL IV PRN (13:00)
[2023-11-09] MEDS ORDERED: ePHEDrine SULFATE 25 MG/5 ML(5MG/ML) SYRINGE IVP PRN (13:00)
[2023-11-09] MEDS ORDERED: EPIDURAL/PCA KEYS XX PRN (13:00)
[2023-11-09] MEDS ORDERED: NALOXONE INJ 0.4MG/1ML VIAL IV PRN (13:00)
[2023-11-09] MEDS ORDERED: LR 500 ML IV PRN (13:00)
[2023-11-09] MEDS: LR 1,000 ML IV SCH (13:23)
[2023-11-09 13:44] LABS: HEPATITIS C VIRUS ABY INDEX < 0.02 INDEX (<0.8)
[2023-11-09] MEDS: FENTANYL/ROPIVACAINE/NACL BAG 100 ML EPIDURAL SCH (13:46)
[2023-11-09] MEDS: OXYTOCIN DRIP 30 UNITS in IV 1 EA IV SCH (13:59)
[2023-11-09] MEDS ORDERED: RHO(D) IMMUNE GLOBULIN/MALTOSE 500MCG(2500IU)/2.2ML VIAL (WINRHO) IM SCH (18:55)
[2023-11-09] MEDS ORDERED: DOCUSATE SODIUM 100MG CAPSULE PO PRN (18:55)
[2023-11-09] MEDS ORDERED: METHYLERGONOVINE MALEATE 0.2 MG TAB PO PRN (18:55)
[2023-11-09] MEDS ORDERED: ACETAMINOPHEN 500 MG TAB PO PRN (18:55)
[2023-11-09] MEDS ORDERED: IBUPROFEN 800 MG TAB PO PRN (18:55)
[2023-11-09] MEDS ORDERED: DIBUCAINE 1% OINTMENT 30GM TOP PRN (18:55)
[2023-11-09] MEDS ORDERED: IBUPROFEN 600MG TAB PO PRN (18:55)
[2023-11-09] MEDS ORDERED: ACETAMINOPHEN TAB 650MG DOSE (2X325MG) PO PRN (18:55)
[2023-11-10 06:00] VITALS: BP 121/59; O2SAT 97
[2023-11-10] MEDS: PRENATAL VITAMINS CHEWABLE TABLET PO SCH (09:00)
[2023-11-10] MEDS: FERROUS SULFATE 325MG TAB PO SCH (13:16)
[2023-11-10 18:00] VITALS: BP 133/68; O2SAT 99
[2023-11-11 06:00] VITALS: BP 135/89; O2SAT 99
[2023-11-11] MEDS: MEASLES,MUMPS,RUBELLA VACCINE INJ (MMR-II) SC.IMMUN ONE (07:10)
[2023-11-11] MEDS ORDERED: IBUP-1022 PO (11:21)
[2023-11-11] MEDS ORDERED: FERR1TAB8 PO (11:21)
[2023-11-11] MEDS ORDERED: COLA100C5 PO (11:21)
[2023-11-11] MEDS ORDERED: ACET-683 PO (11:21)
== END 2023-11-11 11:55 | disposition home or self-care (01) | DRG 560 ==
LOC: M LDO 10:09 → M LDI 11:51 → M OBS 20:58
PROVIDERS: ADMIT Specialist; ATTEND Specialist
PROC: 10E0XZZ Delivery of Products of Conception, External Approach (ICD-10-PCS; principal; 2023-11-09)
PROC: 0HQ9XZZ Repair Perineum Skin, External Approach (ICD-10-PCS; 2023-11-09)
DX: O70.0 First degree perineal laceration during delivery (principal); Z37.0 Single live birth; Z3A.39 39 weeks gestation of pregnancy

== ENCOUNTER 2025-02-25 13:00 | Emergency (ER) | payer MEDICAID, OTHER, SELFPAY ==
[~2025-02-25] VITALS: Ht 165.1 cm; Wt 65.6 kg
[~2025-02-25 13:00] MED LIST changes: +ACET-683 PO; +ACET-897 PO; +COLA100C5 PO; +FERR1TAB8 PO; +IBUP600T42 PO; +PRENTAB9 PO; +REGL10TA6 PO
[2025-02-25 13:03] VITALS: TEMP 99
[2025-02-25 13:50] LABS: BASO # 0.1 10^3/uL (0.0-0.2); BASO % 0.5 % (0.0-1.0); EOS # 0.1 10^3/uL (0.0-0.5); EOS % 1.4 % (0.0-3.0); LYMPH # 1.6 10^3/uL (1.5-5.0); LYMPH % 15.9 % (24.0-44.0); MONO # 0.6 10^3/uL (0.0-0.8); MONO % 6.2 % (2.0-8.0); NEUTROPHILS # 7.6 10^3/uL (1.5-8.5); NEUTROPHILS % 75.6 % (36.0-66.0); PLATELET COUNT, AUTOMATED 219 10^3/uL (150-450)
[2025-02-25 14:21] LABS: CK-MB VALUE MASS < 1.0 NG/ML (<3.6)
[2025-02-25 14:25] LABS: ALT/SGPT 31 U/L (7.0-40); AST/SGOT 65 U/L (<34); CALCIUM LEVEL 8.8 MG/DL (8.5-10.1); CARBON DIOXIDE LEVEL 28 MMOL/L (20-31); CHLORIDE LEVEL 106 MMOL/L (98-107); CREATININE FOR GFR 0.85 MG/DL (0.55-1.30); GLOMERULAR FILTRATION RATE > 90.0 (>60); MAGNESIUM LEVEL 1.6 MG/DL (1.8-2.4); POTASSIUM SERUM 3.7 MMOL/L (3.5-5.1); SODIUM LEVEL 143 MMOL/L (136-145)
[2025-02-25 14:27] LABS: CPK CREATINE PHOSPHOKINASE 96 U/L (34-145)
[2025-02-25 14:35] LABS: HCG, SERUM QUALITATIVE NEGATIVE (NEGATIVE)
[2025-02-25] MEDS ORDERED: MAG SULF 1GM/100ML (MAG RUN) 1 GM in IV 1 EA IV ONE (17:05)
[2025-02-25] MEDS: MAG SULF 1GM/100ML (MAG RUN) 1 GM in IV 1 EA IV SCH (17:17)
[2025-02-25 19:31] VITALS: BP 123/63; O2SAT 99
== END 2025-02-25 20:02 | disposition home or self-care (01) ==
LOC: M ED 13:00
DX: E83.42 Hypomagnesemia (principal); R00.1 Bradycardia, unspecified; Z79.1 Long term (current) use of non-steroidal anti-inflammatories (NSAID); Z79.899 Other long term (current) drug therapy
CPT/HCPCS: 71045; 80048; 80076; 82550; 82553; 83690; 83735; 84443; 84484; 84703; 85025; 93005; 93041; 94760; 96365; 96366; 99285; J3475